=== PATIENT | male | born 1985 | race Caucasian/White ===

== ENCOUNTER 2018-07-06 18:02 | Emergency (ER) | payer MEDICAID, SELFPAY ==
[2018-07-06] VITALS (8 sets, daily range): BP systolic 148–157; BP diastolic 77–115; PULSE 77–92; RESP 16–23; TEMP 37.2; O2SAT 97–99; BMI 24.3
--- NOTE | 2018-07-06 19:36 | CT_ITS ---
STUDY: CTA OF THE BRAIN REASON FOR EXAM: Male, 33 years old. Seizures today. History of brain angioma with prior surgery. RADIATION DOSAGE (If Supplied By Facility): CTDIvol = ( 27.67 ) mGy, DLP = ( 1542.42 ) mGycm TECHNIQUE: CT angiography was performed with a multi-detector CT scanner. Data acquisition was obtained from the skull base through the vertex following intravenous administration of 100 ml of Isovue-300. MIP images were reconstructed from the axial data set. Post-processing of the angiographic images was performed, with multiplanar reformation and 3D reconstruction. Individualized dose optimization techniques were used for this CT. COMPARISON: None. FINDINGS: Normal bilateral petrous carotid arteries. Normal right cavernous carotid artery with a normal supraclinoid bifurcation. There is increased density about the left cavernous carotid and the possibility of leak versus venous enhancement should be considered. Normal right A1 segments of the anterior cerebral artery. Normal left A1 segments of the anterior cerebral artery. Normal intact anterior communicating artery (ACOM). Normal bilateral A2 segments of the anterior cerebral arteries. Normal right M1 and M2 segments of the middle cerebral arteries, with a normal M1 bifurcation. Normal left M1 and M2 segments of the middle cerebral arteries, with a normal M1 bifurcation. There is non-visualization of the right posterior communicating artery (PCOM). There is a persistent origin of the left posterior cerebral artery with absence of the posterior communicating artery (PCOM). Normal bilateral vertebral arteries. Normal basilar artery with a normal basilar bifurcation. The visualized bilateral superior cerebellar (SCA) arteries are normal. Normal bilateral P1, P2 and visualized P3 segments of the posterior cerebral arteries. 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 There is a vague area of increased density in the region of the right basal ganglia with associated hypodensity suggesting old lacunar infarct. Findings suggest the possibility of intraparenchymal hemorrhage. CT/CTA Head W/WO Contrast IMPRESSION: 1. Question intraparenchymal hemorrhage in the right occipital lobe. There is an associated hypodensity suggesting remote lacunar infarct. 2. Enhancing material surrounding the left cavernous carotid not seen on the right. Question leak versus enhancing venous structures. There is no visualized aneurysm. 3. Otherwise normal levelock of [place]. N.B. : The above information has been verbally conveyed by Heldaio Mercado DO to Zac Michele MD, on 07/06/2018 20:58:20 (ET). Electronically Signed: Heladio Mercado DO at 20:59 EST Tel [phone], Service support ,
--- NOTE | 2018-07-06 19:36 | EKG12_ITS ---
Test Reason : NEURO S/SX Blood Pressure : / mmHG Vent. Rate : 081 BPM Atrial Rate : 081 BPM P-R Int : 182 ms QRS Dur : 114 ms QT Int : 376 ms P-R-T Axes : 052 051 049 degrees QTc Int : 436 ms Normal sinus rhythm with sinus arrhythmia Normal ECG Confirmed by KAELYN HORTA, TIFFANIE ([id number]), web editor [employer] ([id number]) on 07/11/2018 1:04:40 PM Referred By: AMANDA Confirmed By:TIFFANIE ART MD
--- NOTE | 2018-07-06 19:36 | CT_ITS ---
STUDY: CTA NECK WITH AND WITHOUT CONTRAST REASON FOR EXAM: Male, 33 years old. Seizure today. History of multiple angiomas. RADIATION DOSAGE (If Supplied By Facility): CTDIvol = ( ) mGy, DLP = ( ) mGycm TECHNIQUE: CT angiography with multi-detector data acquisition was performed from the aortic arch to the skull base prior to and after intravenous administration of 100ML ml of Isovue 300 contrast. MIP images were reconstructed from the axial data set. Post-processing of the angiographic images was performed, with multiplanar reformation and 3D reconstruction. Individualized dose optimization techniques were used for this CT. COMPARISON: None. FINDINGS: AORTIC ARCH: Normal visualized aortic arch. Normal origins of the brachiocephalic, left common carotid, and left subclavian arteries. RIGHT CAROTID ARTERIES: Normal right common carotid artery (CCA). Normal right common carotid bulb. Normal origin of the right internal carotid (ICA) artery without a hemodynamically significant stenosis. Normal visualized cervical portion of the right internal carotid artery. Normal origin of the right external carotid artery (ECA). LEFT CAROTID ARTERIES: Normal left common carotid artery (CCA). Normal left common carotid bulb. Normal origin of the left internal carotid (ICA) artery without a hemodynamically significant stenosis. Normal visualized cervical portion of the left internal carotid artery. Normal origin of the left external carotid artery (ECA). VERTEBRAL ARTERIES: Normal bilateral vertebral arteries. CT/CTA Neck W/WO Contrast IMPRESSION: Normal bilateral cervical carotid and vertebral arteries. Electronically Signed: Heladio Mercado DO at 21:03 EST Tel [phone], Service support ,
--- NOTE | 2018-07-06 19:40 | ED.VISSUMM ---
- ER Visit Summary Date of Service: 07/06/18 Chief Complaint: Left-sided numbness and tingling resolved History of Present Illness: The patient is a 33 M history of prior meningioma with seizures. The meningioma was resected and he has not had any seizures for 10 years. Currently off seizure medications. Today he was hunting around 1630 and he got numbness with some discomfort in his left arm and leg. That lasted about 5 minutes and resolved. States he was feeling fine and then had a second episode at 1730 p.m. Again lasted 5 minutes and again has resolved. He currently denies any headache or chest pain. He denies any recent illness. He says he is never had episodes like this before. No prior history of stroke or TIA but he has had intracranial bleeds from angiomas. Physical Examination: Well-appearing young male. Vital signs are stable. He is afebrile. He does not look septic or toxic. Initial blood pressure 152/113. HEENT exam normal. Pupils round reactive light. Extra motions are intact. Normal speech. No facial droop. Neck nontender. Lungs clear to auscultation bilaterally. Heart regular rhythm no murmur. Rate about 80. Abdomen is soft nontender. Normal bowel sounds no peritoneal signs area patient is moving all 4 extremities. They are neurovascularly intact equal symmetrical radial pulses. 5 out of 5 medical care manager strength. Dorsi plantar flexion intact. Neurologic exam is normal. NIH is 0. Normal speech. No facial droop. Extra motions are intact. 5 out of 5 medical care manager strength bilaterally. Fingertip to nose within normal limits bilaterally. Dorsi plantar flexion intact. 5 out of 5 motor strength and normal sensation in the lower extremities. He can lift either leg off the bed. Heel to garcia within normal limits. No facial droop. Test Results: CBC White count of 10. Hemoglobin 15. Chemistries normal gap of 4 normal creatinine. PT PTT INR all normal. Chest x-ray no acute abnormality normal cardiac silhouette mediastinum. CTA of the brain shows a right occipital intracranial bleed. Read by the radiologist reviewed by me. Emergency Department Course and Treatment: Left sided numbness. Really his exam is normal. Treatment Plan: Multiple repeat exams patient is doing well. His neurologic exam remains normal. I have already spoken to the [facility] neurosurgeon in transfer line and they will accept him in transfer via ground. Disposition: Transfer to [facility] neuro ICU Impression: Transient left-sided numbness resolved secondary to acute right occipital intracranial bleed History of angiomas with prior intracranial bleeds This note was generated with [employer] dictation software. It may contain incorrect words, spelling, and punctuation that were not noted in review of the chart prior to signing ED Disposition - Plan for ED Patient: Chief Complaint: Numb/Ting Referrals: Dustin Lunsford MD [Primary Care Provider] -
--- NOTE | 2018-07-06 19:43 | ED.DCSUM_ITS ---
- ER Visit Summary Date of Service: 07/06/18 Chief Complaint: Left-sided numbness and tingling resolved History of Present Illness: The patient is a 33 M history of prior meningioma with seizures. The meningioma was resected and he has not had any seizures for 10 years. Currently off seizure medications. Today he was hunting around 1630 and he got numbness with some discomfort in his left arm and leg. That lasted about 5 minutes and resolved. States he was feeling fine and then had a second episode at 1730 p.m. Again lasted 5 minutes and again has resolved. He currently denies any headache or chest pain. He denies any recent illness. He says he is never had episodes like this before. No prior history of stroke or TIA but he has had intracranial bleeds from angiomas. Physical Examination: Well-appearing young male. Vital signs are stable. He is afebrile. He does not look septic or toxic. Initial blood pressure 152/113. HEENT exam normal. Pupils round reactive light. Extra motions are intact. Normal speech. No facial droop. Neck nontender. Lungs clear to auscultation bilaterally. Heart regular rhythm no murmur. Rate about 80. Abdomen is soft nontender. Normal bowel sounds no peritoneal signs area patient is moving all 4 extremities. They are neurovascularly intact equal symmetrical radial pulses. 5 out of 5 bulb filler strength. Dorsi plantar flexion intact. Neurologic exam is normal. NIH is 0. Normal speech. No facial droop. Extra motions are intact. 5 out of 5 bulb filler strength bilaterally. Fingertip to nose within normal limits bilaterally. Dorsi plantar flexion intact. 5 out of 5 motor strength and normal sensation in the lower extremities. He can lift either leg off the bed. Heel to garcia within normal limits. No facial droop. Test Results: CBC White count of 10. Hemoglobin 15. Chemistries normal gap of 4 normal creatinine. PT PTT INR all normal. Chest x-ray no acute abnormality normal cardiac silhouette mediastinum. CTA of the brain shows a right occipital intracranial bleed. Read by the radiologist reviewed by me. Emergency Department Course and Treatment: Left sided numbness. Really his exam is normal. Treatment Plan: Multiple repeat exams patient is doing well. His neurologic exam remains normal. I have already spoken to the [facility] neurosurgeon in transfer line and they will accept him in transfer via ground. Disposition: Transfer to [facility] neuro ICU Impression: Transient left-sided numbness resolved secondary to acute right occipital intracranial bleed History of angiomas with prior intracranial bleeds This note was generated with [email or web address] dictation software. It may contain incorrect words, spelling, and punctuation that were not noted in review of the chart prior to signing ED Disposition - Plan for ED Patient: Chief Complaint: Numb/Ting Referrals: Dustin Lunsford MD [Primary Care Provider] -
[2018-07-06 20:01] LABS: Absolute Lymphocyte Count 1.07 X10^3/ul (0.83-4.51); Absolute Neutrophil Count 8.5 X10^3/uL (2.0-7.7); Basophil# 0.03 X10^3/uL; Basophil% 0.3 % (0-1); Eosinophil# 0.02 X10^3/uL; Eosinophils% 0.2 % (0-5); Hematocrit 45.7 % (40-54); Hemoglobin 15.4 g/dl (13.0-16.5); Lymphocyte # 1.07 X10^3/ul (4.0); Lymphocyte % 10.5 % (19-41); Mean Corp Hgb Conc 33.7 g/gl (32-36); Mean Corpuscular Hgb 30.9 pg (27.0-32.0); Mean Corpuscular Volume 91.8 fL (80-94); Mean Platelet Vol. 11.9 fl (6.2-12.0); Monocyte# 0.64 X10^3/uL; Monocyte% 6.3 % (0-10); Neutrophil # 8.45 X10^3/uL (2.7-7.7); Neutrophil % 82.5 % (47-70); Platelet Count 253 K/mm3 (150-450); RBC Distribution Width CV 12.5 % (11.6-14.6); RBC Distribution Width SD 42.1 fl (35.1-43.9); Red Blood Count 4.98 M/mm3 (4.6-6.2); White Blood Count 10.2 K/mm3 (4.4-11.0)
[2018-07-06 20:04] LABS: POSITIVE COUNT NO; POSITIVE DIFFERENTIAL NO; POSITIVE MORPHOLOGY NO
--- NOTE | 2018-07-06 20:08 | RAD_ITS ---
STUDY: X-RAY CHEST REASON FOR EXAM: Male, 33 years old. Numbness and tingling. TECHNIQUE: Single AP portable view of the chest. COMPARISON: None. FINDINGS: The lungs are clear and expanded. There is no demonstrated pleural abnormality. Normal size heart. Normal mediastinum and [place]. Normal visualized pulmonary arteries. Normal visualized aortic arch and descending thoracic aorta. Normal visualized thoracic spine. Normal visualized ribs, clavicles, and shoulders. There is no demonstrated abnormality of the visualized soft tissue structures of the upper abdomen. RAD/Chest 1 View IMPRESSION: Normal x-ray examination of the chest. Electronically Signed: Gina Johnson MD at 20:23 EST , Service support ,
[2018-07-06 20:11] LABS: Prothrombin Time (Protime)PT. 13.1 SECONDS (11.7-14.9)
[2018-07-06 20:12] LABS: Partial Thromboplast Time 30.6 Seconds (24.1-36.2)
[2018-07-06 20:15] LABS: BUN 9 mg/dL (7-18); Creatinine, Serum 0.99 mg/dL (0.70-1.30); Estimated Creatinine Clearance 103.64 ml/min; Glucose 118 mg/dL (74-106)
[2018-07-06 20:16] LABS: Anion Gap 4 (5-15); BUN/Creat Ratio 9.1 RATIO (10-20); Chloride 104 mmol/L (98-107); EST Glomerular Filtration Rate 93 mL/min (>60); Est Glom Filt Rate - Afr Amer 112 mL/min (>60); Potassium 3.6 mmol/L (3.5-5.1); Sodium Level 139 mmol/L (136-145)
[2018-07-06] MEDS: 0.9% Normal Saline 1,000 ML 999 ML IV (20:40)
[2018-07-06 20:46] LABS: Bedside Glucose 114 mg/dL (70-110)
[2018-07-06] MEDS: Ondansetron 4 MG/2 ML Vial IV (21:18)
[2018-07-06] MEDS: LORazepam 2 MG/ML Syringe 0.5 MG IV ×2 (22:10→22:55)
== END 2018-07-06 22:59 | disposition short-term general hospital (02) ==
PROVIDERS: Emergency Provider Emergency Medicine; Family Provider Internal Medicine; PCP Internal Medicine
DX: I61.9 Nontraumatic intracerebral hemorrhage, unspecified (principal); R20.0 Anesthesia of skin; Z86.018 Personal history of other benign neoplasm; I10 Essential (primary) hypertension; Z79.899 Other long term (current) drug therapy
CPT/HCPCS: 70496; 70498; 71045; 80048; 82962; 84484; 85025; 85610; 85730; 93005; 96361; 96374; 96375; 96376; 99283; Q9967; A4216; J2405